=== PATIENT | male | born 1930 | race Caucasian/White ===

== ENCOUNTER 2017-11-24 01:00 | Inpatient (IN) | payer MEDICARE ==
[~2017-11-24] VITALS: Ht 180.3 cm; Wt 89.0 kg
[~2017-11-24 01:00] MED LIST: ASCO500 PO; ASPI81CH; ASPI81EC PO; Adult Low Dose81 MG PO; Aspir-Trin325 MG PO; CITRICAL PO; CLOP75 PO; DOCU100 PO; FINA5 PO; FURO20 PO; GLUC500 PO; HYDACE5 PO; LOVA20 PO; METO25ER PO; MULTI VITAMIN1 EACH PO; OMEP20ER PO; POTCHL10ER PO; STATIN; TAMS.4ER PO
[2017-11-24] MEDS ORDERED: XARELTO20 MG PO (01:27)
[2017-11-24 02:11] LABS: BASOPHILS ABSOLUTE AUTO 0.02 K/mm3 (0.00-0.23); BASOPHILS PERCENT AUTO 0 % (0-2); EOSINOPHILS PERCENT AUTO 0 % (0-6); Hematocrit 45.4 % (37.0-53.0); Hemoglobin 15.4 g/dL (13.5-17.5); IMMATURE GRAN ABSOLUTE AUTO 0.05 K/mm3 (0.00-0.10); IMMATURE GRAN PERCENT AUTO 1 % (0-1); LYMPHOCYTES ABSOLUTE AUTO 1.76 K/mm3 (0.84-5.20); LYMPHOCYTES PERCENT AUTO 17 % (21-46); MONOCYTES ABSOLUTE AUTO 0.58 K/mm3 (0.16-1.47); MONOCYTES PERCENT AUTO 6 % (4-13); Mean Corpuscular HGB Conc 33.9 g/dL (31.5-36.5); Mean Corpuscular Volume 94 fL (80-100); Mean Platelet Volume 11.5 fL (9.1-12.4); NEUTROPHILS ABSOLUTE AUTO 8.02 K/mm3 (1.96-9.15); NEUTROPHILS PERCENT AUTO 77 % (41-73); Platelet Count 132 K/mm3 (150-400); RDW Coefficient Variation 12.2 % (11.7-14.2); RDW Standard Deviation 42.5 fL (35.1-46.3); Red Blood Cell Count 4.81 M/mm3 (4.30-5.90); White Blood Cell Count 10.43 K/mm3 (4.00-11.30)
[2017-11-24 02:16] LABS: Alanine Aminotransfer (ALT/SGP 21 U/L (12-78); Albumin, Blood 3.9 g/dL (3.4-5.0); Alk Phos 118 U/L (50-136); Anion Gap 6 mmol/L (6-16); Aspartate Aminotrans (AST/SGOT 22 U/L (12-37); Bilirubin, Total 0.7 mg/dL (0.1-1.0); Blood Urea Nitrogen 21 mg/dL (8-24); Bun/Creatinine Ratio 18.6 (12.0-20.0); CO2, Blood 28 mmol/L (21-32); Calcium, Blood 9.3 mg/dL (8.5-10.1); Chloride, Blood 106 mmol/L (98-108); Creatinine, Blood 1.13 mg/dL (0.60-1.20); Globulin, Blood 4.1 g/dL (2.2-4.0); Glomerular Filtration Rate >60 (60-); Glucose, Blood 141 mg/dL (70-99); Sodium, Blood 140 mmol/L (136-145)
[2017-11-24] MEDS ORDERED: Omeprazole20 M1 (20:41)
[2017-11-24] MEDS ORDERED: VITAMIN B12-FO1 EACH (20:43)
[2017-11-24] MEDS ORDERED: ERGO400 (20:44)
[2017-11-24 22:25] LABS: Mean Platelet Volume 11.6 fL (9.1-12.4); Platelet Count 124 K/mm3 (150-400)
[2017-11-24 22:37] LABS: International Normalized Ratio 1.06
[2017-11-26 05:16] LABS: Hematocrit 38.3 % (37.0-53.0); Hemoglobin 12.5 g/dL (13.5-17.5); Mean Corpuscular HGB 30.9 pg (26.0-34.0); Mean Corpuscular HGB Conc 32.6 g/dL (31.5-36.5); Mean Corpuscular Volume 95 fL (80-100); Mean Platelet Volume 11.9 fL (9.1-12.4); Platelet Count 115 K/mm3 (150-400); RDW Coefficient Variation 12.1 % (11.7-14.2); RDW Standard Deviation 42.1 fL (35.1-46.3); Red Blood Cell Count 4.05 M/mm3 (4.30-5.90); White Blood Cell Count 7.12 K/mm3 (4.00-11.30)
[2017-11-26 05:32] LABS: Anion Gap 4 mmol/L (6-16); Blood Urea Nitrogen 18 mg/dL (8-24); Bun/Creatinine Ratio 17.5 (12.0-20.0); CO2, Blood 27 mmol/L (21-32); Calcium, Blood 7.7 mg/dL (8.5-10.1); Chloride, Blood 112 mmol/L (98-108); Creatinine, Blood 1.03 mg/dL (0.60-1.20); Glomerular Filtration Rate >60 (60-); Glucose, Blood 100 mg/dL (70-99); Potassium, Blood 3.6 mmol/L (3.5-5.5); Sodium, Blood 143 mmol/L (136-145)
== END 2017-11-28 18:03 | disposition home or self-care (01) | DRG 390 ==
LOC: ER 01:00 → MEDS 03:04 → ENPENDDIS 11-28 10:50 → MEDS 11-28 18:03
PROVIDERS: Emergency Medicine; Internal Medicine; Nurse Practitioner Acute Care
DX: K56.600 Partial intestinal obstruction, unspecified as to cause (principal); R19.5 Other fecal abnormalities; N18.3 Chronic kidney disease, stage 3 (moderate); E78.5 Hyperlipidemia, unspecified; I48.0 Paroxysmal atrial fibrillation; D69.6 Thrombocytopenia, unspecified; N40.0 Benign prostatic hyperplasia without lower urinary tract symptoms
CPT/HCPCS: 36415; 71046; 74176; 80048; 80053; 83690; 85025; 85027; 85049; 85610; 85730; 93005; 93010; 96374; 96375; 96376; 99285; C9113; J1644; J2405; J3010; J7030

== ENCOUNTER 2017-12-19 15:02 | Emergency (ER) | END 2017-12-19 19:19 | disposition home or self-care (01) ==

== ENCOUNTER 2018-01-04 15:25 | Observation (INO) | payer MEDICARE ==
[~2018-01-04] VITALS: Ht 180.3 cm; Wt 86.6 kg
[~2018-01-04 15:25] MED LIST changes: +(None)20 M1 PO; +ERGO400 PO; +METO25 PO; -METO25ER PO; +Micro-K10 MEQ PO; +Omeprazole20 M1 PO; -POTCHL10ER PO; +VITAMIN B12-FO1 EACH; +XARELTO20 MG PO
[2018-01-04 16:12] LABS: BASOPHILS ABSOLUTE AUTO 0.04 K/mm3 (0.00-0.23); BASOPHILS PERCENT AUTO 1 % (0-2); EOSINOPHILS ABSOLUTE AUTO 0.08 K/mm3 (0.00-0.68); EOSINOPHILS PERCENT AUTO 1 % (0-6); Hematocrit 40.2 % (37.0-53.0); Hemoglobin 13.4 g/dL (13.5-17.5); IMMATURE GRAN ABSOLUTE AUTO 0.01 K/mm3 (0.00-0.10); IMMATURE GRAN PERCENT AUTO 0 % (0-1); LYMPHOCYTES ABSOLUTE AUTO 3.03 K/mm3 (0.84-5.20); LYMPHOCYTES PERCENT AUTO 42 % (21-46); MONOCYTES ABSOLUTE AUTO 0.59 K/mm3 (0.16-1.47); MONOCYTES PERCENT AUTO 8 % (4-13); Mean Corpuscular HGB Conc 33.3 g/dL (31.5-36.5); Mean Corpuscular Volume 93 fL (80-100); Mean Platelet Volume 12.1 fL (9.1-12.4); NEUTROPHILS PERCENT AUTO 48 % (41-73); Platelet Count 118 K/mm3 (150-400); RDW Standard Deviation 41.1 fL (35.1-46.3); Red Blood Cell Count 4.32 M/mm3 (4.30-5.90); White Blood Cell Count 7.25 K/mm3 (4.00-11.30)
[2018-01-04 16:26] LABS: Troponin I <0.015 ng/mL (0.000-0.040)
[2018-01-04 16:27] LABS: Alanine Aminotransfer (ALT/SGP 19 U/L (12-78); Albumin, Blood 3.2 g/dL (3.4-5.0); Albumin/Globulin Ratio 0.9 (0.8-1.8); Alk Phos 101 U/L (50-136); Anion Gap 9 mmol/L (6-16); Aspartate Aminotrans (AST/SGOT 26 U/L (12-37); Bilirubin, Total 0.7 mg/dL (0.1-1.0); Blood Urea Nitrogen 14 mg/dL (8-24); Bun/Creatinine Ratio 13.9 (12.0-20.0); CO2, Blood 27 mmol/L (21-32); Calcium, Blood 9.1 mg/dL (8.5-10.1); Chloride, Blood 108 mmol/L (98-108); Creatinine, Blood 1.01 mg/dL (0.60-1.20); Globulin, Blood 3.6 g/dL (2.2-4.0); Glomerular Filtration Rate >60 (60-); Glucose, Blood 112 mg/dL (70-99); Potassium, Blood 4.4 mmol/L (3.5-5.5); Sodium, Blood 144 mmol/L (136-145); Total Protein, Blood 6.8 g/dL (6.4-8.2)
[2018-01-04] MEDS ORDERED: ALBU90OI6 INH ×2 (16:42→21:02)
[2018-01-04] MEDS ORDERED: B-12500 MCG PO (21:05)
[2018-01-05 05:01] LABS: Anion Gap 9 mmol/L (6-16); Blood Urea Nitrogen 16 mg/dL (8-24); Bun/Creatinine Ratio 14.5 (12.0-20.0); CO2, Blood 26 mmol/L (21-32); Chloride, Blood 110 mmol/L (98-108); Glomerular Filtration Rate >60 (60-); Glucose, Blood 111 mg/dL (70-99); Potassium, Blood 4.1 mmol/L (3.5-5.5); Sodium, Blood 145 mmol/L (136-145)
[2018-01-06] MEDS ORDERED: NEBI5 PO (10:44)
[2018-01-06] MEDS ORDERED: FURO20 PO (10:44)
[2018-01-06] MEDS ORDERED: AZIT500 PO (10:47)
== END 2018-01-06 13:03 | disposition home or self-care (01) ==
LOC: ER 15:25 → MEDS 15:26
PROVIDERS: Emergency Medicine; Nurse Practitioner Acute Care
DX: R09.02 Hypoxemia (principal); R55 Syncope and collapse; I11.0 Hypertensive heart disease with heart failure; I50.32 Chronic diastolic (congestive) heart failure; I47.1 Supraventricular tachycardia; E78.5 Hyperlipidemia, unspecified; E78.00 Pure hypercholesterolemia, unspecified; I48.0 Paroxysmal atrial fibrillation; F03.90 Unspecified dementia, unspecified severity, without behavioral disturbance, psychotic disturbance, mood disturbance, and anxiety; I48.2 Chronic atrial fibrillation; D69.6 Thrombocytopenia, unspecified; N40.0 Benign prostatic hyperplasia without lower urinary tract symptoms; Z86.73 Personal history of transient ischemic attack (TIA), and cerebral infarction without residual deficits; Z85.038 Personal history of other malignant neoplasm of large intestine; Z79.01 Long term (current) use of anticoagulants; Z79.899 Other long term (current) drug therapy; Z90.49 Acquired absence of other specified parts of digestive tract
CPT/HCPCS: 36415; 71260; 80048; 80053; 84484; 85025; 87070; 87205; 93005; 93010; 94640; 94761; 94762; 96365; 96376; 99285; G0378; J0696; Q9967

== ENCOUNTER 2018-01-20 11:42 | Inpatient (IN) | payer MEDICARE ==
[~2018-01-20] VITALS: Ht 175.3 cm; Wt 83.5 kg
[~2018-01-20 11:42] MED LIST changes: +ALBU90OI6 INH; +AZIT500 PO; +B-12500 MCG PO; +NEBI5 PO
[2018-01-20 12:17] LABS: BASOPHILS ABSOLUTE AUTO 0.02 K/mm3 (0.00-0.23); BASOPHILS PERCENT AUTO 0 % (0-2); EOSINOPHILS PERCENT AUTO 0 % (0-6); Hematocrit 44.3 % (37.0-53.0); Hemoglobin 14.6 g/dL (13.5-17.5); IMMATURE GRAN ABSOLUTE AUTO 0.02 K/mm3 (0.00-0.10); IMMATURE GRAN PERCENT AUTO 0 % (0-1); LYMPHOCYTES PERCENT AUTO 20 % (21-46); MONOCYTES ABSOLUTE AUTO 0.48 K/mm3 (0.16-1.47); MONOCYTES PERCENT AUTO 5 % (4-13); Mean Corpuscular Volume 94 fL (80-100); Mean Platelet Volume 11.8 fL (9.1-12.4); NEUTROPHILS ABSOLUTE AUTO 6.67 K/mm3 (1.96-9.15); NEUTROPHILS PERCENT AUTO 74 % (41-73); Platelet Count 127 K/mm3 (150-400); RDW Coefficient Variation 12.5 % (11.7-14.2); RDW Standard Deviation 43.7 fL (35.1-46.3); Red Blood Cell Count 4.71 M/mm3 (4.30-5.90); White Blood Cell Count 8.99 K/mm3 (4.00-11.30)
[2018-01-20 12:37] LABS: Alanine Aminotransfer (ALT/SGP 20 U/L (12-78); Albumin, Blood 3.8 g/dL (3.4-5.0); Albumin/Globulin Ratio 0.9 (0.8-1.8); Alk Phos 107 U/L (50-136); Anion Gap 8 mmol/L (6-16); Aspartate Aminotrans (AST/SGOT 21 U/L (12-37); Blood Urea Nitrogen 16 mg/dL (8-24); Bun/Creatinine Ratio 15.2 (12.0-20.0); CO2, Blood 28 mmol/L (21-32); Calcium, Blood 9.2 mg/dL (8.5-10.1); Chloride, Blood 106 mmol/L (98-108); Creatinine, Blood 1.05 mg/dL (0.60-1.20); Globulin, Blood 4.1 g/dL (2.2-4.0); Glomerular Filtration Rate >60 (60-); Glucose, Blood 126 mg/dL (70-99); Potassium, Blood 4.1 mmol/L (3.5-5.5); Sodium, Blood 142 mmol/L (136-145); Total Protein, Blood 7.9 g/dL (6.4-8.2)
[2018-01-20 13:08] LABS: Magnesium, Blood 2.3 mg/dL (1.6-2.4); Phosphorus, Blood 2.6 mg/dL (2.5-4.9)
[2018-01-21 05:14] LABS: BASOPHILS ABSOLUTE AUTO 0.03 K/mm3 (0.00-0.23); BASOPHILS PERCENT AUTO 0 % (0-2); EOSINOPHILS ABSOLUTE AUTO 0.05 K/mm3 (0.00-0.68); EOSINOPHILS PERCENT AUTO 1 % (0-6); Hematocrit 37.6 % (37.0-53.0); Hemoglobin 12.3 g/dL (13.5-17.5); IMMATURE GRAN ABSOLUTE AUTO 0.01 K/mm3 (0.00-0.10); IMMATURE GRAN PERCENT AUTO 0 % (0-1); LYMPHOCYTES ABSOLUTE AUTO 2.29 K/mm3 (0.84-5.20); LYMPHOCYTES PERCENT AUTO 32 % (21-46); MONOCYTES ABSOLUTE AUTO 0.62 K/mm3 (0.16-1.47); MONOCYTES PERCENT AUTO 9 % (4-13); Mean Corpuscular HGB 31.1 pg (26.0-34.0); Mean Corpuscular HGB Conc 32.7 g/dL (31.5-36.5); Mean Corpuscular Volume 95 fL (80-100); Mean Platelet Volume 11.9 fL (9.1-12.4); NEUTROPHILS PERCENT AUTO 58 % (41-73); Platelet Count 109 K/mm3 (150-400); RDW Coefficient Variation 12.6 % (11.7-14.2); RDW Standard Deviation 43.9 fL (35.1-46.3); Red Blood Cell Count 3.96 M/mm3 (4.30-5.90)
[2018-01-21 05:43] LABS: Anion Gap 7 mmol/L (6-16); Blood Urea Nitrogen 15 mg/dL (8-24); Bun/Creatinine Ratio 14.2 (12.0-20.0); CO2, Blood 28 mmol/L (21-32); Calcium, Blood 8.2 mg/dL (8.5-10.1); Chloride, Blood 110 mmol/L (98-108); Creatinine, Blood 1.06 mg/dL (0.60-1.20); Glomerular Filtration Rate >60 (60-); Glucose, Blood 95 mg/dL (70-99); Sodium, Blood 145 mmol/L (136-145)
[2018-01-22 05:29] LABS: BASOPHILS ABSOLUTE AUTO 0.03 K/mm3 (0.00-0.23); BASOPHILS PERCENT AUTO 0 % (0-2); EOSINOPHILS ABSOLUTE AUTO 0.04 K/mm3 (0.00-0.68); EOSINOPHILS PERCENT AUTO 1 % (0-6); Hemoglobin 12.3 g/dL (13.5-17.5); IMMATURE GRAN ABSOLUTE AUTO 0.03 K/mm3 (0.00-0.10); IMMATURE GRAN PERCENT AUTO 0 % (0-1); LYMPHOCYTES ABSOLUTE AUTO 2.44 K/mm3 (0.84-5.20); LYMPHOCYTES PERCENT AUTO 31 % (21-46); MONOCYTES ABSOLUTE AUTO 0.73 K/mm3 (0.16-1.47); MONOCYTES PERCENT AUTO 9 % (4-13); Mean Corpuscular HGB 31.2 pg (26.0-34.0); Mean Corpuscular HGB Conc 33.2 g/dL (31.5-36.5); Mean Corpuscular Volume 94 fL (80-100); Mean Platelet Volume 12.1 fL (9.1-12.4); NEUTROPHILS ABSOLUTE AUTO 4.56 K/mm3 (1.96-9.15); NEUTROPHILS PERCENT AUTO 58 % (41-73); Platelet Count 114 K/mm3 (150-400); RDW Coefficient Variation 12.6 % (11.7-14.2); RDW Standard Deviation 43.8 fL (35.1-46.3); Red Blood Cell Count 3.94 M/mm3 (4.30-5.90); White Blood Cell Count 7.83 K/mm3 (4.00-11.30)
[2018-01-22 05:53] LABS: Albumin, Blood 3.1 g/dL (3.4-5.0); Anion Gap 11 mmol/L (6-16); Blood Urea Nitrogen 18 mg/dL (8-24); CO2, Blood 25 mmol/L (21-32); Calcium, Blood 8.3 mg/dL (8.5-10.1); Chloride, Blood 111 mmol/L (98-108); Glomerular Filtration Rate >60 (60-); Glucose, Blood 85 mg/dL (70-99); Phosphorus, Blood 2.8 mg/dL (2.5-4.9); Potassium, Blood 3.7 mmol/L (3.5-5.5); Sodium, Blood 147 mmol/L (136-145)
[2018-01-23 04:54] LABS: BASOPHILS ABSOLUTE AUTO 0.02 K/mm3 (0.00-0.23); BASOPHILS PERCENT AUTO 0 % (0-2); EOSINOPHILS ABSOLUTE AUTO 0.05 K/mm3 (0.00-0.68); EOSINOPHILS PERCENT AUTO 1 % (0-6); Hematocrit 36.1 % (37.0-53.0); Hemoglobin 12.1 g/dL (13.5-17.5); IMMATURE GRAN ABSOLUTE AUTO 0.02 K/mm3 (0.00-0.10); IMMATURE GRAN PERCENT AUTO 0 % (0-1); LYMPHOCYTES ABSOLUTE AUTO 2.15 K/mm3 (0.84-5.20); LYMPHOCYTES PERCENT AUTO 30 % (21-46); MONOCYTES ABSOLUTE AUTO 0.64 K/mm3 (0.16-1.47); MONOCYTES PERCENT AUTO 9 % (4-13); Mean Corpuscular HGB 31.5 pg (26.0-34.0); Mean Corpuscular HGB Conc 33.5 g/dL (31.5-36.5); Mean Corpuscular Volume 94 fL (80-100); Mean Platelet Volume 12.2 fL (9.1-12.4); NEUTROPHILS ABSOLUTE AUTO 4.41 K/mm3 (1.96-9.15); NEUTROPHILS PERCENT AUTO 60 % (41-73); Platelet Count 114 K/mm3 (150-400); RDW Coefficient Variation 12.4 % (11.7-14.2); RDW Standard Deviation 42.6 fL (35.1-46.3); Red Blood Cell Count 3.84 M/mm3 (4.30-5.90); White Blood Cell Count 7.29 K/mm3 (4.00-11.30)
[2018-01-23 05:14] LABS: Anion Gap 9 mmol/L (6-16); Blood Urea Nitrogen 17 mg/dL (8-24); Bun/Creatinine Ratio 18.2 (12.0-20.0); CO2, Blood 26 mmol/L (21-32); Calcium, Blood 8.2 mg/dL (8.5-10.1); Chloride, Blood 112 mmol/L (98-108); Creatinine, Blood 0.93 mg/dL (0.60-1.20); Glomerular Filtration Rate >60 (60-); Glucose, Blood 94 mg/dL (70-99); Magnesium, Blood 2.3 mg/dL (1.6-2.4); Potassium, Blood 3.5 mmol/L (3.5-5.5); Sodium, Blood 147 mmol/L (136-145)
[2018-01-24 04:41] LABS: BASOPHILS ABSOLUTE AUTO 0.03 K/mm3 (0.00-0.23); BASOPHILS PERCENT AUTO 0 % (0-2); EOSINOPHILS ABSOLUTE AUTO 0.09 K/mm3 (0.00-0.68); EOSINOPHILS PERCENT AUTO 1 % (0-6); Hematocrit 36.9 % (37.0-53.0); Hemoglobin 12.3 g/dL (13.5-17.5); IMMATURE GRAN ABSOLUTE AUTO 0.03 K/mm3 (0.00-0.10); IMMATURE GRAN PERCENT AUTO 0 % (0-1); LYMPHOCYTES ABSOLUTE AUTO 2.35 K/mm3 (0.84-5.20); LYMPHOCYTES PERCENT AUTO 28 % (21-46); MONOCYTES ABSOLUTE AUTO 0.68 K/mm3 (0.16-1.47); MONOCYTES PERCENT AUTO 8 % (4-13); Mean Corpuscular HGB 31.3 pg (26.0-34.0); Mean Corpuscular HGB Conc 33.3 g/dL (31.5-36.5); Mean Corpuscular Volume 94 fL (80-100); Mean Platelet Volume 11.8 fL (9.1-12.4); NEUTROPHILS ABSOLUTE AUTO 5.24 K/mm3 (1.96-9.15); NEUTROPHILS PERCENT AUTO 62 % (41-73); Platelet Count 115 K/mm3 (150-400); RDW Coefficient Variation 12.4 % (11.7-14.2); RDW Standard Deviation 43.2 fL (35.1-46.3); Red Blood Cell Count 3.93 M/mm3 (4.30-5.90); White Blood Cell Count 8.42 K/mm3 (4.00-11.30)
[2018-01-24 05:01] LABS: Anion Gap 8 mmol/L (6-16); Blood Urea Nitrogen 14 mg/dL (8-24); CO2, Blood 25 mmol/L (21-32); Calcium, Blood 8.4 mg/dL (8.5-10.1); Chloride, Blood 112 mmol/L (98-108); Creatinine, Blood 0.93 mg/dL (0.60-1.20); Glomerular Filtration Rate >60 (60-); Glucose, Blood 101 mg/dL (70-99); Potassium, Blood 3.3 mmol/L (3.5-5.5); Sodium, Blood 145 mmol/L (136-145)
[2018-01-25 04:40] LABS: Anion Gap 7 mmol/L (6-16); Blood Urea Nitrogen 9 mg/dL (8-24); Bun/Creatinine Ratio 10.4 (12.0-20.0); CO2, Blood 27 mmol/L (21-32); Calcium, Blood 7.9 mg/dL (8.5-10.1); Chloride, Blood 111 mmol/L (98-108); Creatinine, Blood 0.87 mg/dL (0.60-1.20); Glomerular Filtration Rate >60 (60-); Glucose, Blood 97 mg/dL (70-99); Potassium, Blood 3.1 mmol/L (3.5-5.5); Sodium, Blood 145 mmol/L (136-145)
== END 2018-01-25 14:40 | disposition home or self-care (01) | DRG 390 ==
LOC: ER 11:42 → MEDS 11:43 → ENPENDDIS 01-25 12:00 → MEDS 01-25 14:40
PROVIDERS: Emergency Medicine; Family Medicine
DX: K56.51 Intestinal adhesions [bands], with partial obstruction (principal); I48.0 Paroxysmal atrial fibrillation; I50.9 Heart failure, unspecified; D69.6 Thrombocytopenia, unspecified; Z99.81 Dependence on supplemental oxygen; E78.5 Hyperlipidemia, unspecified; K21.9 Gastro-esophageal reflux disease without esophagitis; N40.0 Benign prostatic hyperplasia without lower urinary tract symptoms; Z96.653 Presence of artificial knee joint, bilateral; Z96.641 Presence of right artificial hip joint; Z85.038 Personal history of other malignant neoplasm of large intestine; Z90.49 Acquired absence of other specified parts of digestive tract; Z79.899 Other long term (current) drug therapy; Z79.01 Long term (current) use of anticoagulants; Z86.73 Personal history of transient ischemic attack (TIA), and cerebral infarction without residual deficits
CPT/HCPCS: 36415; 74018; 74177; 80048; 80053; 80069; 83690; 83735; 84100; 85025; 96361; 96374; 97161; 97166; 97535; 99285-25; C9113; G8978; G8979; G8987; G8988; J1650; J2405; J7030; J7120; Q9967

== ENCOUNTER 2018-04-17 12:51 | Emergency (ER) | payer MEDICARE ==
[~2018-04-17] VITALS: Ht 175.3 cm; Wt 82.5 kg
[2018-04-17 13:57] LABS: BASOPHILS ABSOLUTE AUTO 0.02 K/mm3 (0.00-0.23); BASOPHILS PERCENT AUTO 0 % (0-2); EOSINOPHILS ABSOLUTE AUTO 0.04 K/mm3 (0.00-0.68); EOSINOPHILS PERCENT AUTO 1 % (0-6); Hematocrit 43.1 % (37.0-53.0); Hemoglobin 14.3 g/dL (13.5-17.5); IMMATURE GRAN ABSOLUTE AUTO 0.02 K/mm3 (0.00-0.10); IMMATURE GRAN PERCENT AUTO 0 % (0-1); LYMPHOCYTES ABSOLUTE AUTO 3.09 K/mm3 (0.84-5.20); LYMPHOCYTES PERCENT AUTO 45 % (21-46); MONOCYTES ABSOLUTE AUTO 0.47 K/mm3 (0.16-1.47); MONOCYTES PERCENT AUTO 7 % (4-13); Mean Corpuscular HGB 31.2 pg (26.0-34.0); Mean Corpuscular HGB Conc 33.2 g/dL (31.5-36.5); Mean Corpuscular Volume 94 fL (80-100); Mean Platelet Volume 11.3 fL (9.1-12.4); NEUTROPHILS ABSOLUTE AUTO 3.18 K/mm3 (1.96-9.15); NEUTROPHILS PERCENT AUTO 47 % (41-73); Platelet Count 123 K/mm3 (150-400); RDW Coefficient Variation 12.1 % (11.7-14.2); RDW Standard Deviation 42.2 fL (35.1-46.3); Red Blood Cell Count 4.58 M/mm3 (4.30-5.90); White Blood Cell Count 6.82 K/mm3 (4.00-11.30)
[2018-04-17 14:19] LABS: Alanine Aminotransfer (ALT/SGP 21 U/L (12-78); Albumin, Blood 3.8 g/dL (3.4-5.0); Alk Phos 108 U/L (50-136); Anion Gap 8 mmol/L (6-16); Aspartate Aminotrans (AST/SGOT 19 U/L (12-37); Bilirubin, Total 0.7 mg/dL (0.1-1.0); Blood Urea Nitrogen 19 mg/dL (8-24); CO2, Blood 26 mmol/L (21-32); Calcium, Blood 8.8 mg/dL (8.5-10.1); Chloride, Blood 109 mmol/L (98-108); Creatinine, Blood 1.19 mg/dL (0.60-1.20); Globulin, Blood 3.9 g/dL (2.2-4.0); Glomerular Filtration Rate >60 (60-); Glucose, Blood 94 mg/dL (70-99); Potassium, Blood 3.8 mmol/L (3.5-5.5); Sodium, Blood 143 mmol/L (136-145); Total Protein, Blood 7.7 g/dL (6.4-8.2)
== END 2018-04-17 17:09 | disposition home or self-care (01) ==
LOC: ER 12:51
PROVIDERS: Emergency Medicine
DX: H53.9 Unspecified visual disturbance (principal); R00.1 Bradycardia, unspecified; I50.9 Heart failure, unspecified; I48.91 Unspecified atrial fibrillation; Z79.899 Other long term (current) drug therapy; Z79.01 Long term (current) use of anticoagulants
CPT/HCPCS: 36415; 70450; 80053; 85025; 93005; 93010; 99284-25

== ENCOUNTER 2018-11-02 13:24 | Inpatient (IN) | payer MEDICARE ==
[~2018-11-02] VITALS: Ht 175.3 cm; Wt 87.8 kg
[~2018-11-02 13:24] MED LIST changes: +CHOL10002 PO; -ERGO400 PO; -GLUC500 PO; +NEBI10 PO; -NEBI5 PO; -Omeprazole20 M1 PO; +[UNRECOGNIZED DRUG - CODE] PO
[2018-11-02] MEDS ORDERED: CELE200 PO (14:18)
[2018-11-02 14:20] LABS: BASOPHILS ABSOLUTE AUTO 0.05 K/mm3 (0.00-0.23); BASOPHILS PERCENT AUTO 1 % (0-2); EOSINOPHILS ABSOLUTE AUTO 0.04 K/mm3 (0.00-0.68); EOSINOPHILS PERCENT AUTO 1 % (0-6); Hematocrit 45.8 % (37.0-53.0); Hemoglobin 14.8 g/dL (13.5-17.5); IMMATURE GRAN ABSOLUTE AUTO 0.02 K/mm3 (0.00-0.10); IMMATURE GRAN PERCENT AUTO 0 % (0-1); LYMPHOCYTES ABSOLUTE AUTO 2.85 K/mm3 (0.84-5.20); LYMPHOCYTES PERCENT AUTO 38 % (21-46); MONOCYTES ABSOLUTE AUTO 0.45 K/mm3 (0.16-1.47); MONOCYTES PERCENT AUTO 6 % (4-13); Mean Corpuscular HGB 31.8 pg (26.0-34.0); Mean Corpuscular HGB Conc 32.3 g/dL (31.5-36.5); Mean Corpuscular Volume 99 fL (80-100); Mean Platelet Volume 11.3 fL (9.1-12.4); NEUTROPHILS ABSOLUTE AUTO 4.15 K/mm3 (1.96-9.15); NEUTROPHILS PERCENT AUTO 55 % (41-73); Platelet Count 122 K/mm3 (150-400); RDW Coefficient Variation 12.2 % (11.7-14.2); RDW Standard Deviation 43.8 fL (35.1-46.3); Red Blood Cell Count 4.65 M/mm3 (4.30-5.90); White Blood Cell Count 7.56 K/mm3 (4.00-11.30)
[2018-11-02 14:54] LABS: Alanine Aminotransfer (ALT/SGP 16 U/L (12-78); Albumin, Blood 3.7 g/dL (3.4-5.0); Albumin/Globulin Ratio 1.1 (0.8-1.8); Alk Phos 90 U/L (50-136); Anion Gap 8 mmol/L (6-16); Aspartate Aminotrans (AST/SGOT 13 U/L (12-37); Bilirubin, Total 0.6 mg/dL (0.1-1.0); Blood Urea Nitrogen 28 mg/dL (8-24); Bun/Creatinine Ratio 24.6 (12.0-20.0); CO2, Blood 25 mmol/L (21-32); Calcium, Blood 8.7 mg/dL (8.5-10.1); Chloride, Blood 112 mmol/L (98-108); Creatinine, Blood 1.14 mg/dL (0.60-1.20); Globulin, Blood 3.5 g/dL (2.2-4.0); Glomerular Filtration Rate >60 (60-); Glucose, Blood 104 mg/dL (70-99); Potassium, Blood 4.1 mmol/L (3.5-5.5); Sodium, Blood 145 mmol/L (136-145); Total Protein, Blood 7.2 g/dL (6.4-8.2)
[2018-11-02 15:02] LABS: Bilirubin, Urine Neg (Neg); Blood, Urine 1+ (Neg); Glucose Qualitative, Urine Neg (Neg); Ketones, Urine Neg (Neg); Leukocyte Esterase, Urine 3+ (Neg); Nitrite, Urine Neg (Neg); Protein, Urine Neg (Neg); Source, Urine Clean Catch; Specific Gravity, Urine 1.025 (1.003-1.022); Urobilinogen, Urine NORM (Normal)
[2018-11-02 15:12] LABS: Appearance, Urine Clear (Clear); Color, Urine Yellow (P-Yellow)
[2018-11-02 15:15] LABS: Amorphous Light (0-Heavy); Bacteria Few /hpf; Mucus Light (0-Heavy); Red Blood Cells, Urine 0-2 /hpf (0-2); Squamous Epithelial Cells Few /hpf (Few)
[2018-11-02 15:50] LABS: International Normalized Ratio 1.15
[2018-11-02] MEDS ORDERED: CLARITIN10 MG PO (18:22)
[2018-11-02] MEDS ORDERED: Omeprazole20 M1 PO (18:22)
[2018-11-02 20:11] LABS: Hematocrit 40.3 % (37.0-53.0)
[2018-11-03 04:55] LABS: Hematocrit 39.1 % (37.0-53.0); Hemoglobin 12.8 g/dL (13.5-17.5); Mean Corpuscular HGB Conc 32.7 g/dL (31.5-36.5); Mean Corpuscular Volume 98 fL (80-100); Mean Platelet Volume 11.5 fL (9.1-12.4); Platelet Count 103 K/mm3 (150-400); RDW Coefficient Variation 12.3 % (11.7-14.2); RDW Standard Deviation 44.4 fL (35.1-46.3); White Blood Cell Count 6.94 K/mm3 (4.00-11.30)
[2018-11-03 05:11] LABS: Anion Gap 7 mmol/L (6-16); Blood Urea Nitrogen 30 mg/dL (8-24); Bun/Creatinine Ratio 29.1 (12.0-20.0); CO2, Blood 26 mmol/L (21-32); Calcium, Blood 8.4 mg/dL (8.5-10.1); Chloride, Blood 113 mmol/L (98-108); Creatinine, Blood 1.03 mg/dL (0.60-1.20); Glomerular Filtration Rate >60 (60-); Glucose, Blood 105 mg/dL (70-99); Potassium, Blood 3.9 mmol/L (3.5-5.5); Sodium, Blood 146 mmol/L (136-145)
--- NOTE | 2018-11-03 05:30 | NUR ---
VSS, AFEBRILE, PT NPO AFTER MIDNOC PER ORDER, OOB TO THE BR FOR BLACK LIQUID STOOL X 1, NO COMPLAINTS, DENIES PAIN, SLEPT LIGHTLY OVERNOC, PLEASANT, COOPERATIVE, WILL REPORT TO ON-COMING SHIFT.
--- NOTE | 2018-11-03 15:26 | NUR ---
PATEINT AWAKE POST UPPER AND FLKEX SIG. APPROX 10 MIN after END POST PROCEDURE AND SEDATION PT WITH PROLONGED EPISODE OF HYPOTENSION. PT AWAKE AT ONSET, MILDLY CONFUSED, AGETATED, ABLE TO AWNSER QUESTIONS. BP REMAINED LOW FOR SOME TIME. CALL PLACED TO DR. GARG. TAVARES TO TRANSFER TO PCU STATUS. IN ICU 14. REPORT GIVENT O PHYSICIAN SUPPORT COORDINATOR TO ASSUME care.
--- NOTE | 2018-11-03 16:18 | NUR ---
CALLED ICU I CALLED ICU TO ASK IF THEY HAD ANY QUESTIONS ABOUT THIS PT. THE PT WAS TAKEN FOR AN UPPER EGD AND A SIGMOID COLONOSCOPY AND THEN TRANSFERED TO ICU (PCU STATUS). I WAS INFORMED THAT THE PT'S ICU NURSE HAD NO FURTHER QUESTIONS REGARDING THE PT.
[2018-11-03 16:29] LABS: Hematocrit 37.2 % (37.0-53.0); Hemoglobin 12.1 g/dL (13.5-17.5)
--- NOTE | 2018-11-03 17:26 | NUR ---
INITIAL ASSESSMENT PATIENT ARRIVED TO ROOM AT 1540. PATIENT AOX4. PATIENT IS [place]. PATIENT'S FAMILY REPORTED THAT HE CAN BE FORGETFUL AND CONFUSED AT TIMES. PATIENT DENIES PAIN AT THIS TIME. PATIENT IS AFEBRILE. PATIENT'S FAMILY STATES HE USES A WALKER TO GET AROUND AT HOME. PATIENT IS SATTING AT 90% OR GREATER ON RA. HR IS IN THE 50S-70S. NSR. BP IS STABLE. ABDOMEN HAS MILD DISTENSION ON PALPATION. BOWEL SOUNDS ARE HYPOACTIVE/NORMOACTIVE. LAST BM WAS 11/02/18. IS WNL PER PATIENT REPORT. SKIN IS PALE. BED LOW. CALL LIGHT IN REACH. WILL CONTINUE TO MONITOR.
--- NOTE | 2018-11-03 17:52 | NUR ---
SHIFT SUMMARY PATIENT RESTING QUIETLY IN BED. PATIENT AFEBRILE. NO COMPLAINTS OF PAIN AT THIS TIME. VSS. BED LOW. CALL LIGHT IN REACH. WILL CONTINUE TO MONITOR.
--- NOTE | 2018-11-03 20:10 | NUR ---
CALLED DR. ALARCON TO LET HIM KNOW THAT THE PT IS NOT TOLERATING THE GOLYTELY PREP. PT CAN ONLY TAKE SIPS AND IS SO TIRED HE CANNOT STAY AWAKE. DR. ALARCON SAID TO CALL FAMILY TO LET THEM KNOW. CALLED THE SON ARNALDO WHO SAID HE WILL TRY TO COME BACK IN AND HELP GET HIM TO DRINK IT.
--- NOTE | 2018-11-03 21:55 | NUR ---
SON AND AT BEDSIDE. UNSUCCESSFUL TRYING TO GET HIM TO DRINK GOLYTELY. DR. ALARCON SAID HE WILL RE-EVAL IN AM.
--- NOTE | 2018-11-04 06:23 | NUR ---
SUMMARY PT AWAKE THIS AM. ORIENTED TO PERSON AND PLACE. PT DID NOT TOLERATE GOLYTELY BOWEL PREP. ONLY GOT A COUPLE OF GLASSES DOWN. NO BM'S. PT FEELING A LITTLE NAUSEATED. NO SIGN OF DISTRESS THIS AM. USING CALL LIGHT APPROPRIATELY.
[2018-11-04 08:59] LABS: Hemoglobin 11.8 g/dL (13.5-17.5)
[2018-11-04 09:16] LABS: Anion Gap 7 mmol/L (6-16); Blood Urea Nitrogen 26 mg/dL (8-24); Bun/Creatinine Ratio 25.5 (12.0-20.0); CO2, Blood 27 mmol/L (21-32); Calcium, Blood 8.1 mg/dL (8.5-10.1); Chloride, Blood 110 mmol/L (98-108); Creatinine, Blood 1.02 mg/dL (0.60-1.20); Glomerular Filtration Rate >60 (60-); Glucose, Blood 124 mg/dL (70-99); Potassium, Blood 3.6 mmol/L (3.5-5.5); Sodium, Blood 144 mmol/L (136-145)
--- NOTE | 2018-11-04 10:23 | NUR ---
INTIAL ASSESSMENT PATIENT IS RESTING QUIETLY IN BED. PATIENT HAS A TEMPERATURE OF 99.2 DEGREES FAHRENHEIT. PATIENT IS ALERT AND ORIENTED. PATIENT IS SATTING AT 90% OR GREATER ON RA. LUNG SOUNDS ARE CLEAR IN THE UPPER LOBES, DIMINISHED IN THE LOWER LOBES. HR IS IN THE 70S. BP IS STABLE. PATIENT HAS MODERATE DISTENTION IN ABDOMEN WITH HYPERACTIVE BOWEL TONES. IS WNL. SKIN IS WARM AND PALE. NO OTHER ACUTE CHANGES TO NOTE AT THIS TIME. BED LOW. CALL LIGHT IN REACH. WILL CONTINUE TO MONITOR.
--- NOTE | 2018-11-04 12:39 | NUR ---
PATIENT RESTING IN BED WATCHING TELEVISION AND VISITING WITH DAUGHTER WHO IS AT THE BEDSIDE. NO COMPLAINTS OF PAIN AT THIS TIME. VSS. BED LOW, CALL LIGHT IN REACH. WILL CONTINUE TO MONITOR.
[2018-11-04 16:28] LABS: Source, Urine Catheter
--- NOTE | 2018-11-04 16:36 | NUR ---
PATIENT TRANSFERRED OVER TO SURGICAL FLOOR, ROOM 228. PATIENT REMAINED ALERT AND ORIENTED WITH FEW PERIODS OF FORGETFULNESS DURING SHIFT. PATIENT REMAINED AFEBRILE. PATIENT DID NOT HAVE ANY COMPLAINTS OF PAIN. PATIENT REMAINED SATTING 90% AND GREATER ON RA. PATIENT REMAINED IN SR WITH OCCASIONAL PVCS. HR 60S TO 80S. BP STABLE. PATIENT HAD LARGE, LOOSE, BROWN BM THIS SHIFT. PATIENT TOLERATING CARDIAC DIET WELL. PATIENT HAD NOT VOIDED, DR. KEARNEY CALLED. STRAIGHT CATH OBTAINED 590 ML URINE. UA SENT. BLADDER SCAN ORDERED PRN AND STRAIGHT CATH TO BE PERFORMED FOR ANY BLADDER SCAN SHOWING OVER 400 MLS. NO CHANGES IN SKIN. PATIENT HAD COMPLETE BED BATH. IVS SALINE LOCKED. DAUGHTER IN AND OUT DURING DAY.
[2018-11-04 16:41] LABS: Appearance, Urine Clear (Clear); Bilirubin, Urine Neg (Neg); Blood, Urine 2+ (Neg); Color, Urine Yellow (P-Yellow); Glucose Qualitative, Urine Neg (Neg); Ketones, Urine 1+ (Neg); Leukocyte Esterase, Urine Neg (Neg); Nitrite, Urine Neg (Neg); Protein, Urine Neg (Neg); Specific Gravity, Urine 1.025 (1.003-1.022); Urobilinogen, Urine NORM (Normal)
--- NOTE | 2018-11-04 16:50 | NUR ---
TRANSFER: PT ARRIVED TO SURGICAL FLOOR FROM ICU. PT ALERT AND ORIENTED. INSTRUCTED ORACLE SPECIALIST LIGHT USE. WATER GIVEN AT BEDSIDE. PAS TO BLE. WILL CONT TO MONITOR AND TREAT.
[2018-11-04 16:54] LABS: White Blood Cells, Urine 0-2 /hpf (0-5)
[2018-11-04 16:55] LABS: Bacteria Few /hpf; Squamous Epithelial Cells Few /hpf (Few)
[2018-11-05 05:07] LABS: Hematocrit 33.5 % (37.0-53.0); Hemoglobin 10.7 g/dL (13.5-17.5); Mean Corpuscular HGB Conc 31.9 g/dL (31.5-36.5); Mean Corpuscular Volume 100 fL (80-100); Mean Platelet Volume 11.5 fL (9.1-12.4); Platelet Count 94 K/mm3 (150-400); RDW Coefficient Variation 12.6 % (11.7-14.2); RDW Standard Deviation 46.4 fL (35.1-46.3); Red Blood Cell Count 3.34 M/mm3 (4.30-5.90); White Blood Cell Count 8.18 K/mm3 (4.00-11.30)
[2018-11-05 05:34] LABS: Percent Saturation 29.3 % (20.0-50.0)
--- NOTE | 2018-11-05 06:12 | NUR ---
SHIFT SUMMARY PT RESTED WELL THIS SHIFT. AAOX4/[place]. DENIES DISCOMFORT/NAUSEA. LOOSE BM X2 THIS SHIFT, ATTENDS IN PLACE. SMALL AMOUNT OF URINE OUT. BLADDER SCAN THIS AM WITH 200cc RESIDUAL. PT REPORTING OUTPUT IS "USUAL" FOR HIM AND REQUESTS MORE SLEEP THIS AM. WILL REPORT TO DAY SHIFT RN REGARDING PT'S REQUESTS + WILL FOLLOW UP. CALL LIGHT IN REACH + BED ALARM FOR SAFETY.
--- NOTE | 2018-11-05 12:02 | NUR ---
URINARY RETENTION: PT UP TO VOID 200CC, BLADDER SCAN SHOWING 297 REMAINING IN BLADDER. HOSPITALIST NOTIFIED.
[2018-11-05 13:27] LABS: Hematocrit 36.1 % (37.0-53.0); Hemoglobin 11.5 g/dL (13.5-17.5)
--- NOTE | 2018-11-05 15:20 | NUR ---
DISCHARGE: PT DC TO HOME AT THIS TIME WITH FAMILY. VERBALIZED UNDERSTANDING OF INSTRUCTIONS, PROBLEMS TO REPORT, MEDICATIONS AND FOLLOW UP. PT SON STATES THAT HE DID NOT NEED SCRIPT CALLED IN THEY HAVE PLENTY AT HOME TO GIVE NEW DOSE. IV'S DC'D WNL. PT LEFT VIA WHEELCHAIR TO CAR WITH BELONGINGS.
== END 2018-11-05 15:20 | disposition home or self-care (01) | DRG 378 ==
LOC: ER 13:24 → MEDS 13:25 → ER 19:52 → MEDS 20:07 → ICUW 11-03 15:20 → SURS 11-03 15:50 → ICUW 11-04 09:36 → SURS 11-04 16:45
PROVIDERS: Emergency Medicine; Internal Medicine Gastroenterology; Physician Assistant; ADMIT Internal Medicine
PROC: 0DJ08ZZ Inspection of Upper Intestinal Tract, Via Natural or Artificial Opening Endoscopic (ICD-10-PCS; principal; 2018-11-03 13:30)
PROC: 0DJD8ZZ Inspection of Lower Intestinal Tract, Via Natural or Artificial Opening Endoscopic (ICD-10-PCS; 2018-11-03 13:30)
DX: K57.31 Diverticulosis of large intestine without perforation or abscess with bleeding (principal); D68.32 Hemorrhagic disorder due to extrinsic circulating anticoagulants; D62 Acute posthemorrhagic anemia; I50.32 Chronic diastolic (congestive) heart failure; J96.11 Chronic respiratory failure with hypoxia; I74.8 Embolism and thrombosis of other arteries; T45.515A Adverse effect of anticoagulants, initial encounter; I48.0 Paroxysmal atrial fibrillation; Z86.73 Personal history of transient ischemic attack (TIA), and cerebral infarction without residual deficits; F01.50 Vascular dementia, unspecified severity, without behavioral disturbance, psychotic disturbance, mood disturbance, and anxiety; I11.0 Hypertensive heart disease with heart failure; N40.1 Benign prostatic hyperplasia with lower urinary tract symptoms; R33.8 Other retention of urine; K64.1 Second degree hemorrhoids; K44.9 Diaphragmatic hernia without obstruction or gangrene; K29.80 Duodenitis without bleeding
CPT/HCPCS: 36415; 74177; 80048; 80053; 81001; 82728; 83540; 83550; 85014; 85018; 85025; 85027; 85610; 85730; 86850; 86900; 86901; 93005; 93010; 96365-59; 96366-59; 96376; 99285-25; C9113; G0378; J2704; J7120; Q9967

== ENCOUNTER 2018-11-30 03:20 | Inpatient (IN) | payer MEDICARE ==
[~2018-11-30] VITALS: Ht 177.8 cm; Wt 87.5 kg
[~2018-11-30 03:20] MED LIST changes: +CELE200 PO; +CLARITIN10 MG PO; +Omeprazole20 M1 PO
[2018-11-30] MEDS ORDERED: FURO20 PO (03:37)
[2018-11-30] MEDS ORDERED: POTCHL10ER PO (03:37)
[2018-11-30] MEDS ORDERED: XARELTO20 MG PO (03:37)
[2018-11-30] MEDS ORDERED: CELE200 PO (03:38)
[2018-11-30] MEDS ORDERED: OMEPRAZOLE20 MG PO (03:38)
[2018-11-30 10:57] LABS: BASOPHILS ABSOLUTE AUTO 0.02 K/mm3 (0.00-0.23); BASOPHILS PERCENT AUTO 0 % (0-2); EOSINOPHILS ABSOLUTE AUTO 0.02 K/mm3 (0.00-0.68); EOSINOPHILS PERCENT AUTO 0 % (0-6); Hematocrit 40.7 % (37.0-53.0); Hemoglobin 13.1 g/dL (13.5-17.5); IMMATURE GRAN ABSOLUTE AUTO 0.02 K/mm3 (0.00-0.10); IMMATURE GRAN PERCENT AUTO 0 % (0-1); LYMPHOCYTES ABSOLUTE AUTO 2.45 K/mm3 (0.84-5.20); LYMPHOCYTES PERCENT AUTO 31 % (21-46); MONOCYTES ABSOLUTE AUTO 0.46 K/mm3 (0.16-1.47); MONOCYTES PERCENT AUTO 6 % (4-13); Mean Corpuscular HGB 31.6 pg (26.0-34.0); Mean Corpuscular HGB Conc 32.2 g/dL (31.5-36.5); Mean Corpuscular Volume 98 fL (80-100); Mean Platelet Volume 11.6 fL (9.1-12.4); NEUTROPHILS ABSOLUTE AUTO 4.91 K/mm3 (1.96-9.15); NEUTROPHILS PERCENT AUTO 62 % (41-73); Platelet Count 114 K/mm3 (150-400); RDW Coefficient Variation 12.3 % (11.7-14.2); RDW Standard Deviation 44.4 fL (35.1-46.3); Red Blood Cell Count 4.15 M/mm3 (4.30-5.90); White Blood Cell Count 7.88 K/mm3 (4.00-11.30)
[2018-11-30 11:11] LABS: International Normalized Ratio 1.17; Prothrombin Time Results 12.2 Sec (9.7-11.5)
[2018-11-30 11:20] LABS: Cancer Antigen 19-9 7.3 U/mL (2.0-37.0); Carcinoembryonic Antigen 1.5 ng/mL (0.0-3.0)
[2018-11-30 11:28] LABS: Alanine Aminotransfer (ALT/SGP 14 U/L (12-78); Albumin, Blood 3.8 g/dL (3.4-5.0); Albumin/Globulin Ratio 1.1 (0.8-1.8); Alk Phos 88 U/L (50-136); Anion Gap 5 mmol/L (6-16); Aspartate Aminotrans (AST/SGOT 8 U/L (12-37); Bilirubin, Total 0.6 mg/dL (0.1-1.0); Blood Urea Nitrogen 29 mg/dL (8-24); Bun/Creatinine Ratio 22.8 (12.0-20.0); CO2, Blood 25 mmol/L (21-32); Calcium, Blood 8.8 mg/dL (8.5-10.1); Chloride, Blood 111 mmol/L (98-108); Creatinine, Blood 1.27 mg/dL (0.60-1.20); Globulin, Blood 3.5 g/dL (2.2-4.0); Glomerular Filtration Rate 57 (60-); Glucose, Blood 105 mg/dL (70-99); Potassium, Blood 4.4 mmol/L (3.5-5.5); Sodium, Blood 141 mmol/L (136-145); Total Protein, Blood 7.3 g/dL (6.4-8.2)
--- NOTE | 2018-11-30 18:24 | NUR ---
Shift Summary Patient is stable, A&Ox4, with EKG being sinus kathy. Denies SOB and is on 1L NS. Pain well controlled and transitioned from IV to PO meds since treatment will be nonsurgical. Voided once and waiting for UA sample on next void. Tolerated dinner well, states pain is tolerable.
[2018-11-30 20:39] LABS: Source, Urine Clean Catch
[2018-11-30 20:41] LABS: Bilirubin, Urine Neg (Neg); Blood, Urine Neg (Neg); Glucose Qualitative, Urine Neg (Neg); Ketones, Urine Neg (Neg); Leukocyte Esterase, Urine 2+ (Neg); Nitrite, Urine Neg (Neg); Protein, Urine 1+ (Neg); Specific Gravity, Urine 1.025 (1.003-1.022); Urobilinogen, Urine NORM (Normal)
[2018-11-30 20:46] LABS: Appearance, Urine Clear (Clear); Color, Urine Yellow (P-Yellow)
[2018-11-30 20:47] LABS: Bacteria Few /hpf; Mucus Light (0-Heavy); Red Blood Cells, Urine 0-2 /hpf (0-2); Squamous Epithelial Cells Few /hpf (Few)
[2018-12-01 05:14] LABS: Hematocrit 37.1 % (37.0-53.0); Hemoglobin 11.9 g/dL (13.5-17.5); Mean Corpuscular HGB 31.9 pg (26.0-34.0); Mean Corpuscular HGB Conc 32.1 g/dL (31.5-36.5); Mean Corpuscular Volume 100 fL (80-100); Mean Platelet Volume 11.9 fL (9.1-12.4); Platelet Count 105 K/mm3 (150-400); RDW Coefficient Variation 12.5 % (11.7-14.2); RDW Standard Deviation 45.4 fL (35.1-46.3); Red Blood Cell Count 3.73 M/mm3 (4.30-5.90); White Blood Cell Count 5.84 K/mm3 (4.00-11.30)
[2018-12-01 05:30] LABS: Anion Gap 3 mmol/L (6-16); Blood Urea Nitrogen 25 mg/dL (8-24); Bun/Creatinine Ratio 22.1 (12.0-20.0); CO2, Blood 28 mmol/L (21-32); Calcium, Blood 8.3 mg/dL (8.5-10.1); Chloride, Blood 112 mmol/L (98-108); Creatinine, Blood 1.13 mg/dL (0.60-1.20); Glomerular Filtration Rate >60 (60-); Glucose, Blood 107 mg/dL (70-99); Potassium, Blood 4.5 mmol/L (3.5-5.5); Sodium, Blood 143 mmol/L (136-145)
--- NOTE | 2018-12-01 07:54 | NUR ---
SUMMARY: RIGHT ACETABULAR FX ADMIT DAY [address] LÓPEZ NON-SURGICAL STATUS. VSS, AFEBRILE, 1L O2 PER HOME DOSE, [place] IN THE 40'S. PT PAIN WELL CONTROLLED WITH 2 TABS NORCO X2 THIS SHIFT. PT STATES HE DIDN'T SLEEP HARDLY AT ALL IN THE NIGHT BUT NOT BECAUSE HE WAS PAINFUL. PT/OT AND PLAN TO DC TO SNF.
--- NOTE | 2018-12-01 11:05 | NUR ---
NAUSEA NAUSE WHEN SAT ON EDGE OF BED WHILE WORKING WITH OT. 7UP GIVEN PER PATIENT REQUEST AND NAUSEA RESOLVED
--- NOTE | 2018-12-01 17:57 | NUR ---
SUMMARY PATIENT FOUND STANDING AT SIDE OF BED ATTEMPTING TO VOID. REMINDED PATIENT OF WEIGHT BEARING STATUS- PATIENT TELLS ME HE WANTS TO GO HOME AND IS SEEING IF HE CAN DO THINGS ON HIS OWN. REINFORCED WITH PATIENT NEED TO CALL FOR ASSIST TO GET OOB. PAIN CONTROLLED WITH PO MEDS. PATIENT APPEARS WITHDRAWN AT TIMES AND SAID HE JUST WANTS TO GO HOME- THE HOSPITAL IS JUST MAKING HIM WORSE
[2018-12-02 04:49] LABS: BASOPHILS ABSOLUTE AUTO 0.01 K/mm3 (0.00-0.23); BASOPHILS PERCENT AUTO 0 % (0-2); EOSINOPHILS ABSOLUTE AUTO 0.08 K/mm3 (0.00-0.68); EOSINOPHILS PERCENT AUTO 2 % (0-6); Hemoglobin 12.3 g/dL (13.5-17.5); IMMATURE GRAN ABSOLUTE AUTO 0.01 K/mm3 (0.00-0.10); IMMATURE GRAN PERCENT AUTO 0 % (0-1); LYMPHOCYTES ABSOLUTE AUTO 2.18 K/mm3 (0.84-5.20); LYMPHOCYTES PERCENT AUTO 40 % (21-46); MONOCYTES ABSOLUTE AUTO 0.44 K/mm3 (0.16-1.47); MONOCYTES PERCENT AUTO 8 % (4-13); Mean Corpuscular HGB 32.1 pg (26.0-34.0); Mean Corpuscular HGB Conc 32.4 g/dL (31.5-36.5); Mean Corpuscular Volume 99 fL (80-100); Mean Platelet Volume 12.1 fL (9.1-12.4); NEUTROPHILS ABSOLUTE AUTO 2.72 K/mm3 (1.96-9.15); NEUTROPHILS PERCENT AUTO 50 % (41-73); Platelet Count 103 K/mm3 (150-400); RDW Coefficient Variation 12.4 % (11.7-14.2); RDW Standard Deviation 44.8 fL (35.1-46.3); Red Blood Cell Count 3.83 M/mm3 (4.30-5.90); White Blood Cell Count 5.44 K/mm3 (4.00-11.30)
[2018-12-02 05:09] LABS: Anion Gap 5 mmol/L (6-16); Blood Urea Nitrogen 22 mg/dL (8-24); Bun/Creatinine Ratio 19.1 (12.0-20.0); CO2, Blood 28 mmol/L (21-32); Calcium, Blood 8.6 mg/dL (8.5-10.1); Chloride, Blood 111 mmol/L (98-108); Creatinine, Blood 1.15 mg/dL (0.60-1.20); Glomerular Filtration Rate >60 (60-); Glucose, Blood 100 mg/dL (70-99); Potassium, Blood 4.2 mmol/L (3.5-5.5); Sodium, Blood 144 mmol/L (136-145)
--- NOTE | 2018-12-02 05:51 | NUR ---
SHIFT SUMMARY PT A&O X4 T/O SHIFT. NON-OP R ACETABULAR FX; PPPX4; EXT PWD. PAIN MANAGED PER EMAR. PT NWB RLE; UP WITH FWW, GAIT BELT AND MOD ASSIST TO BSC. SANCHO'S TO BLE'S. CALL LIGHT IN REACH; PT DEMONSTRATES USE. TELEMETRY IN PLACE; JUNCTIONAL RYTHM WITH PJC'S; PT DENIES SOB AND CP; RA. WCTM UNTIL REPORT TO DAY SHIFT RN.
--- NOTE | 2018-12-02 08:31 | NUR ---
DR THOMPSONTRATE RECENTLY TO SEE PT. DISCUSSED MEDICATIONS/VS.
--- NOTE | 2018-12-02 11:05 | NUR ---
DR LÓPEZ HERE TO SEE PT.
--- NOTE | 2018-12-02 18:42 | NUR ---
SHIFT SUMMARY PT HAS BEEN UP TO CHAIR TODAY. PHYSICAL THERAPY HAS BEEN TO SEE PT TODAY. PT IS NWB ON R LEG AND USES WALKER AND GAIT BELT TO TRANSFER TO BEDSIDE COMMODE. PT HAS REPORTED MINIMAL PAIN TODAY. PT IS EATING. BED AND TAB ALARMS HAVE BEEN IN PLACE THROUGHOUT THE DAY. FAMILY HAS BEEN IN TO SEE PT AND WANTS TO BE INVOLVED IN CHOICES REGARDING DISCHARGE AND REHAB FACILITY.
[2018-12-03 04:31] LABS: Hematocrit 39.8 % (37.0-53.0); Hemoglobin 13.1 g/dL (13.5-17.5); Mean Corpuscular HGB 31.9 pg (26.0-34.0); Mean Corpuscular HGB Conc 32.9 g/dL (31.5-36.5); Mean Corpuscular Volume 97 fL (80-100); Mean Platelet Volume 11.4 fL (9.1-12.4); Platelet Count 107 K/mm3 (150-400); RDW Coefficient Variation 12.4 % (11.7-14.2); RDW Standard Deviation 44.5 fL (35.1-46.3); Red Blood Cell Count 4.11 M/mm3 (4.30-5.90); White Blood Cell Count 6.46 K/mm3 (4.00-11.30)
[2018-12-03 04:44] LABS: Bun/Creatinine Ratio 17.7 (12.0-20.0); Creatinine, Blood 1.3 mg/dL (0.60-1.20); Potassium, Blood 4.2 mmol/L (3.5-5.5)
--- NOTE | 2018-12-03 05:39 | NUR ---
SHIFT SUMMARY PT A&O X4 T/O SHIFT. NO ACUTE CHANGES. NON-SURGICAL FX RLE; PPPX4; EXT PWD. PAIN MANAGED PER EMAR. PT UP WITH GAIT BELT, FWW, AND 1-2 SBA TO TOILET; NWB RLE. PT REPOSITIONS SELF IN BED. RA; PT DENIES SOB. TELEMETRY IN PLACE, JUNCTIONAL AVG RATE IN 50'S. CALL LIGHT IN REACH; PT DEMONSTRATES USE. PT REMINDED OF NEED FOR ASSIST WHEN OOB FOR SAFETY. WCTN UNTIL REPORT TO DAY SHIFT RN.
--- NOTE | 2018-12-03 07:26 | NUR ---
DR CRUZ RECENTLY SEEN PT.
--- NOTE | 2018-12-03 13:02 | NUR ---
ECHO BEING DONE AT THIS TIME.
--- NOTE | 2018-12-03 13:40 | NUR ---
DR LÓPEZ HERE TO SEE PT.
--- NOTE | 2018-12-03 18:52 | NUR ---
SHIFT SUMMARY FAMILY IN TO SEE PT TODAY. PT HAS REPORTED MINIMAL PAIN TODAY. PT URINATING, EATING, AND DRINKING. BEEN GIVEN BOWEL CARE. DR IN TO SEE PT TODAY. PT HAS TAB ALARM IN PLACE. PT IS PASSING GAS. PT HAS BEEN UP TO CHAIR TODAY. USES WALKER AND STANDBY ASSIST.
--- NOTE | 2018-12-04 03:48 | NUR ---
SHIFT SUMMARY PT A&O X4 T/O SHIFT. [place]. NWB RLE; UP WITH FWW, GB AND SBA. PPPX4; PT DENIES N/T IN EXT. PT DECLINED PAIN MEDICATION STATING LITTLE OR NO PAIN. RA; PT DENIES CP AND SOB. ABD SOFT; BTX4; BOWEL CARE PER EMAR. CALL LIGHT IN REACH. WCTM UNTIL REPORT TO DAYS SHIFT RN.
--- NOTE | 2018-12-04 13:42 | NUR ---
PT DISCHARGED AT 1335 BY WHEELCHAIR VIA [facility].
--- NOTE | 2018-12-04 15:15 | NUR ---
TRANSFER TO [facility] REPORT CALLED TO CAROLINE AT [facility] AT APPROXIMATELY 1307. SHE WAS NOTIFIED THAT PT WAS GIVEN BOWEL CARE PRIOR TO DISCHARGE. PT LEFT AT APPROXIMATELY 1335 WITH [facility] TRANSPORT AMBULANCE.
== END 2018-12-04 13:15 | DRG 536 ==
LOC: ER 03:20 → SURS 03:21
PROVIDERS: ADMIT Family Medicine
DX: S32.434A Nondisplaced fracture of anterior column [iliopubic] of right acetabulum, initial encounter for closed fracture (principal); F01.51 Vascular dementia, unspecified severity, with behavioral disturbance; I50.32 Chronic diastolic (congestive) heart failure; G89.11 Acute pain due to trauma; D63.8 Anemia in other chronic diseases classified elsewhere; D69.6 Thrombocytopenia, unspecified; K21.9 Gastro-esophageal reflux disease without esophagitis; Z85.038 Personal history of other malignant neoplasm of large intestine; Z86.73 Personal history of transient ischemic attack (TIA), and cerebral infarction without residual deficits; N40.0 Benign prostatic hyperplasia without lower urinary tract symptoms; I48.0 Paroxysmal atrial fibrillation; Z79.01 Long term (current) use of anticoagulants; Z96.641 Presence of right artificial hip joint; E78.5 Hyperlipidemia, unspecified
CPT/HCPCS: 36415; 72192; 73502; 80048; 80053; 81001; 82378; 84153; 85025; 85027; 85610; 85730; 86301; 87086; 93005; 93010; 93306; 96374; 96375; 97110; 97116; 97162; 97166; 97530; 97535; 99284-25; A9270-GY; J1170; J1644; J2405; J3010; J7030